=== PATIENT | female | born 1945 | race Caucasian/White ===

== ENCOUNTER 2019-05-10 20:58 | Emergency (ER) | payer MEDICARE, BC ==
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
[2019-05-10] MEDS ORDERED: Sodium Chloride 0.9% 1,000 ML IV SCH (21:45)
[2019-05-10] MEDS ORDERED: Sodium Chloride 0.9% 10 ML Syringe FLUSH ONE (22:27)
[2019-05-10] MEDS ORDERED: Iopamidol 612 MG/ML 100 ML Bottle IV SCH (22:30)
--- NOTE | 2019-05-11 00:02 | CRLCT ---
INDICATION: JAUNDICE, DIARRHEA CT ABDOMEN AND PELVIS WITH CONTRAST TECHNIQUE: Multidetector CT imaging was performed through the abdomen and pelvis following intravenous contrast administration using 80 mL Isovue 300. Coronal and sagittal reconstructions were generated. COMPARISON: None. FINDINGS: Lower chest: Minimal basilar lung atelectasis or scarring, greatest on the left. Liver: Marked intrahepatic biliary dilation. No definite focal intrahepatic lesion. 6.3 x 2.1 x 5.1 centimeter subcapsular fluid collection along the right lateral convexity of the liver as on image 155 of series 2. Gallbladder, bile ducts, and pancreas: Prominently distended gallbladder. No calcified gallstones. Marked intrahepatic biliary dilation and dilation of the proximal extrahepatic bile duct to a diameter of 16 millimeters with obliteration of the bile duct in the pancreatic head. Poorly defined hypodense pancreatic head mass likely invading the adjacent liver, as on images 100 to 160, series 2. Dilation of the pancreatic duct in the pancreatic body and tail. Encasement and narrowing of the main portal vein and left portal vein. Spleen: Normal. Adrenals: 2.4 centimeter left adrenal nodule. Unremarkable right adrenal. Kidneys, ureters, and urinary bladder: Multiple small subcentimeter hypodense foci within both kidneys are not well characterized but likely represent tiny cysts. No hydronephrosis. Marked distention of the urinary bladder. No bladder mass or definite wall thickening. Gastrointestinal tract: Mild concentric wall thickening of the distal esophagus at the esophagogastric junction. Distended stomach. Multiple areas of wall thickening of the small bowel and colon. No definite bowel obstruction. Vascular structures: Normal for age. Peritoneum: Small amount of free fluid over the convexity of the liver and in the lower pelvis. No free air identified. Lymph nodes: No pathologically enlarged nodes identified. Reproductive organs: No pelvic masses. Bones: Chronic-appearing moderate compression fracture T11. Multilevel lumbar degenerative disk disease, most marked at L4-5. IMPRESSION: 1. Poorly defined pancreatic head mass as described above, likely representing pancreatic adenocarcinoma. The mass obstructs the extrahepatic bile duct and pancreatic duct, encases and narrows the main portal vein and left portal vein, and likely invades the adjacent liver. 2. Marked intrahepatic biliary dilation due to biliary obstruction by the pancreatic head mass. 3. Marked gallbladder distention. 4. Small amount of ascites in the abdomen and pelvis. Loculated collection along the convexity of the right hepatic lobe. 5. Nonspecific areas of wall thickening of the small bowel and colon, and of the distal esophagus. 6. Distended urinary bladder. 7. Additional nonacute findings as detailed above. DERRICK NOLASCO MD [employer] Dictated by Davide Nolasco MD @ 05/11/2019 12:00:26 AM Dictated by: Davide Nolasco MD @ 05/11/2019 00:01:24 (Electronically Signed)
[2019-05-11] MEDS ORDERED: Ondansetron 4 MG/2 ML SDV IVPUSH ONE (00:30)
[2019-05-11] MEDS ORDERED: Potassium Chloride 20 MEQ in Premix Bag 1 BAG IV ONE (01:05)
[2019-05-11] MEDS ORDERED: 50% Dextrose in Water 50 ML Syringe IVPUSH ONE (01:05)
[2019-05-11 04:55] VITALS: BP 122/41; PULSE 72
== END 2019-05-11 07:45 | disposition other institution (70) ==
LOC: JP.ED 20:58
DX: K86.89 Other specified diseases of pancreas (principal); E80.6 Other disorders of bilirubin metabolism; E03.9 Hypothyroidism, unspecified; E20.9 Hypoparathyroidism, unspecified; Z88.8 Allergy status to other drugs, medicaments and biological substances; E10.9 Type 1 diabetes mellitus without complications; Z79.82 Long term (current) use of aspirin; Z79.4 Long term (current) use of insulin; Z79.890 Hormone replacement therapy; Z79.899 Other long term (current) drug therapy
CPT/HCPCS: 36415; 74177; 80048; 80053; 85025; 96361; 96365; 96366; 96375; 99285; A4216; J2001; J2405; J3480; J7030; Q9967